=== PATIENT | female | born 1970 | race Caucasian/White ===

== ENCOUNTER 2020-12-02 11:44 | Emergency (ER) | payer MEDICAID ==
[~2020-12-02] VITALS: Ht 157.5 cm; Wt 55.1 kg
--- NOTE | 2020-12-02 12:44 | NUR ---
TO [facility] FROM [facility]
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
[2020-12-02 13:52] VITALS: BP 132/86
== END 2020-12-02 13:52 | disposition home or self-care (01) ==
LOC: ED 13:50
DX: S06.320A Contusion and laceration of left cerebrum without loss of consciousness, initial encounter (principal); X58.XXXA Exposure to other specified factors, initial encounter; Y93.89 Activity, other specified; Y92.009 Unspecified place in unspecified non-institutional (private) residence as the place of occurrence of the external cause; Y99.8 Other external cause status
CPT/HCPCS: 99281